=== PATIENT | female | born 1995 | race Caucasian/White ===

== ENCOUNTER → 2017-01-28 | Outpatient (CLI) | payer SELFPAY ==
[2017-01-28 13:01] LABS: CH 33.4; CHCM 35.4; HCT 35.6 % (34.0-46.0); HDW 2.47; HGB 11.9 gm/dL (11.4-16.0); MCH 31.9 pg (25.0-35.0); MCHC 33.6 g/dL (31.0-37.0); MCV 94.9 fL (80.0-100.0); Mean Platelet Volume 8.6; RBC 3.75 m/uL (3.80-5.40); RDW 13.3 % (11.5-15.5); WBC 10.2 k/uL (3.8-10.6)
[2017-01-28 13:27] LABS: Glucose 79 mg/dL (74-99); Non-African American GFR(MDRD) >60 (>60 ml/min/1.73 sqM)
[2017-01-28 13:57] LABS: Hepatitis B Surface Ag Index 0.04
[2017-01-28 19:52] LABS: Treponemal Ab Non-Reactive (Non-Reactive)
== END | disposition home or self-care (01) ==
LOC: LABWHC1 12:37
PROVIDERS: ATTEND Obstetrics & Gynecology
DX: O26.812 Pregnancy related exhaustion and fatigue, second trimester (principal); Z3A.00 Weeks of gestation of pregnancy not specified
CPT/HCPCS: 36415; 82565; 82947; 85027; 86762; 86780; 86850; 86900; 86901; 87340; 87390

== ENCOUNTER 2017-05-21 14:18 | Outpatient (CLI) | payer BC ==
--- NOTE | 2017-05-22 08:19 | P.MSEPDOC ---
Presenting Problems - Arrival Data Date of Arrival on Unit: 05/21/17 Time of Arrival on Unit: 14:18 Mode of Transport: Ambulatory - Complaint Comment: paper mse completed Medical History - Information : 2 Para: 1 Term: 0 : 0 Abortions: Spontaneous or Elective: 0 Number of Living Children: 0 - Gestational Age Gestational Age by BC (wks/days): 33 Weeks and 1 Days Physician Notification (Pre) - Notification Comment Comment: paper mse completed Disposition - Disposition Discharge Date: 05/21/17 Discharge Time: 15:30 I agree with the RN Medical Screening Exam: No Physician's MSE Comment: I cannot see the paper MSE so I do not know what is documented. This patient presented with some complaints of cramping and green bowel movements. Her cervix was closed and she was not noted to be chaitanya on the monitor. NST was reactive. She was discharged home to follow up with me at her next scheduled visit which is next week. Risk & Benefit of care provided described in d/c instruction: No Diagnosis: FALSE LABOR BEFORE 37 COMPLETED WEEKS OF GEST, THIRD TRI
== END 2017-05-21 15:30 | disposition home or self-care (01) ==
LOC: FBPOP 14:18
PROVIDERS: ATTEND Obstetrics & Gynecology
DX: O47.03 False labor before 37 completed weeks of gestation, third trimester (principal); Z3A.33 33 weeks gestation of pregnancy
CPT/HCPCS: 59025; 99213

== ENCOUNTER 2017-06-13 12:41 | Outpatient (CLI) | payer BC ==
[2017-06-13 13:50] VITALS: BP 118/65; PULSE 70; RESP 16; TEMP 97.3
--- NOTE | 2017-06-13 18:08 | P.MSEPDOC ---
Presenting Problems - Arrival Data Date of Arrival on Unit: 06/13/17 Time of Arrival on Unit: 12:41 Mode of Transport: Ambulatory - Complaint OB-Reason for Admission/Chief Complaint: NST, Observation/Evaluation Comment: Low ANA on US at [facility], non reactive NST Medical History - Information : 2 Para: 1 Term: 1 : 0 Abortions: Spontaneous or Elective: 0 Number of Living Children: 1 - Gestational Age Gestational Age by BC (wks/days): 36 Weeks and 4 Days - History Complications: Smoker Review of Systems - Review of Systems Constitutional: No problems Breast: No problems ENT: No problems Cardiovascular: No problems Respiratory: No problems Gastrointestinal: No problems Genitourinary: No problems Musculoskeletal: No problems Neurological: No problems Skin: No problems Vital Signs - Temperature Temperature: 97.3 F Temperature Source: Temporal Artery Scan - Pulse Right Sitting Brachial Pulse Rate: 70 Pulse Assessment Method: Automatic Cuff - Respirations Respiratory Rate: 16 Oxygen Delivery Method: Room Air - Blood Pressure Right Arm Sitting Blood Pressure: 118/65 Blood Pressure Mean: 82 Blood Pressure Source: Automatic Cuff Medical Screen Scoring (Pre) - Cervical Exam Dilation: Exam Deferred Effacement: Exam Deferred - Uterine Contractions Frequency: N/A Duration: N/A Intensity: N/A - Maternal Vital Signs Maternal Temperature: N/A Maternal Blood Pressure: N/A Signs of Preeclampsia: N/A Maternal Respirations: N/A - Pain Assessment Pain Intensity: 0 - Maternal Trauma Maternal Trauma: N/A - Assessment Baseline FHR: 120 Heart Rate - NICHD Category: Category I (Normal) = 0 NST: Reactive Position: N/A Station: N/A - Total Score Total Score (Pre): 0 - Level of Risk Level of Risk: N/A Physician Notification (Pre) - Physician Notified Physician Notified Date: 06/13/17 Physician Notified Time: 13:05 Physician/Practitioner Notifed:: Alison Spoke With: Alison Bunn Order Received: Yes - Notification Comment Comment: Pt to follow up with [facility] tomorrow Disposition - Disposition OB Disposition: Observe, Triage, Discharge to home, Written follow up instructions reviewed Discharge Date: 06/13/17 Discharge Time: 13:30 I agree with the RN Medical Screening Exam: Yes Risk & Benefit of care provided described in d/c instruction: Yes Diagnosis: OLIGOHYDRAMNIOS, THIRD TRIMESTER, FETUS 1 (This patient resented to the office for routine ultrasound and was found to have an amniotic fluid index of 4.8. Patient had a non-reactive NST in the office but did smoke. Patient was subsequently sent to labor and delivery for prolonged monitoring and NST was reactive. Of note the patient was seen actually smoking in the parking lot before even coming up to labor and delivery. I discussed all this with the patient and I scheduled her an appointment with Dr. Bergman the maternal medicine tomorrow for further evaluation. I also instructed her on movement counts. She is to most likely be delivered at 37 weeks or later and she understands this pending Dr. Bergman's consultation.)
== END 2017-06-13 13:30 | disposition home or self-care (01) ==
LOC: FBPOP 12:41
PROVIDERS: ATTEND Obstetrics & Gynecology
DX: O41.03X1 Oligohydramnios, third trimester, fetus 1 (principal); Z3A.36 36 weeks gestation of pregnancy
CPT/HCPCS: 59025; 99213